=== PATIENT | female | born 1955 | race Caucasian/White ===

== ENCOUNTER 2017-01-26 09:22 | Emergency (ER) | payer BC ==
[2017-01-26 10:10] VITALS: BP 130/85
--- NOTE | 2017-01-26 10:36 | UC ---
Respiratory Complaint HPI - HPI Summary HPI Summary: 61 YEAR OLD SMOKER WITH edema. no previous work up . no SOB. no CP. Here w/ bilat feet swelling/pain since last month. States pain/swelling progressively getting worse. Denies any injury to bilat lower extremities. Tried benadryl for swelling w/ no relief. [ End ] - History of Current Complaint Chief Complaint: UCLowerExtremity Stated Complaint: BILATERAL LEG/ANKLE SWELLING Time Seen by Provider: 01/26/17 10:11 Hx Obtained From: Patient, Family/Professional Advisor Onset/Duration: Gradual Onset Timing: Constant Severity Initially: Mild Severity Currently: Moderate Character: Cough: Productive - Allergies/Home Medications Allergies/Adverse Reactions: Allergies Allergy/AdvReac Type Severity Reaction Status Date / Time No Known Allergies Allergy Verified 01/26/17 09:57 Home Medications: Home Medications NK [No Home Medications Reported] 01/26/17 [History Confirmed 01/26/17] PMH/Surg Hx/FS Hx/Imm Hx Previously Healthy: Yes - Surgical History Surgical History: None - Family History Known Family History: Positive: None - Social History Occupation: Unemployed Lives: With Family Alcohol Use: Occasionally Substance Use Type: None Smoking Status (MU): Current Every Day Smoker Type: Cigarettes Amount Used/How Often: 1/2 PPD Cessation Counseling: Patient Advised to Stop - Immunization History Most Recent Influenza Vaccination: none Review of Systems Respiratory: Cough Cardiovascular: Other - edema All Other Systems Reviewed And Are Negative: Yes Physical Exam Triage Information Reviewed: Yes Appearance: Well-Appearing, No Pain Distress, Well-Nourished Vital Signs: Initial Vital Signs Temp 99.3 F 01/26/17 09:58 Pulse 88 01/26/17 09:58 Resp 20 01/26/17 09:58 BP 130/85 01/26/17 09:58 Pulse Ox 85 01/26/17 09:58 Vital Signs Reviewed: Yes Eye Exam: Normal ENT Exam: Normal Dental Exam: Normal Neck exam: Normal Neck: Positive: 1 Respiratory Exam: Normal Respiratory: Positive: Chest non-tender, No respiratory distress, No accessory muscle use, Decreased breath sounds - RLL, Crackles, Rhonchi - RLL. Negative: Wheezing Cardiovascular Exam: Normal Abdominal Exam: Normal Musculoskeletal Exam: Normal Neurological Exam: Normal Psychological Exam: Normal Skin Exam: Normal Skin: Positive: Other - b/l LE edema 2 (+) pitting UC Diagnostic Evaluation - Laboratory O2 Sat by Pulse Oximetry: 93 Respiratory Course/Dx - Course Course Of Treatment: Advised with hypoxia and need for oxygen with edema to go to ED for work up-- she is aware of risks of not taking ambulance and if she does not go right there she could have repiratory compromise -- spoke with dr ding at [facility] at 10:41 - Differential Dx/Diagnosis Differential Diagnosis/HQI/PQRI: Bronchitis, CHF Provider Diagnoses: Leg edema and hypoxia Discharge - Discharge Plan Condition: Guarded Disposition: AGAINST MEDICAL ADVICE Patient Education Materials: Heart Failure (ED) Additional Instructions: PLEASE GO DIRECTLY TO THE EMERGENCY ROOM FOR PROPER EVALUATION YOU DID DECLINED AMBULANCE
== END 2017-01-26 10:45 | disposition left against medical advice (07) ==
LOC: UCCORT 09:22
DX: R60.0 Localized edema (principal); R09.02 Hypoxemia; R05 Cough; F17.210 Nicotine dependence, cigarettes, uncomplicated
CPT/HCPCS: 99202; G0463